=== PATIENT | female | born 1985 ===

== ENCOUNTER 2018-11-09 08:02 | Inpatient (IN) | payer SELFPAY ==
[2018-11-09] MEDS ORDERED: Carboprost Tromethamine 250 MCG/1 ML Amp IM PRN (08:28)
[2018-11-09] MEDS ORDERED: Lidocaine 1% 50 ML MDV INJECT PRN (08:28)
[2018-11-09] MEDS ORDERED: Nalbuphine 10 MG/1 ML Vial IVPUSH PRN (08:28)
[2018-11-09] MEDS ORDERED: Methylergonovine 0.2 MG/1 ML Amp IM PRN (08:28)
[2018-11-09] MEDS ORDERED: Sodium Chloride 0.9% 10 ML SDV IV PRN (08:28)
[2018-11-09] MEDS ORDERED: Tranexamic Acid 1,000 MG in Sodium Chloride 0.9% 100 ML IV PRN (08:28)
[2018-11-09] MEDS ORDERED: Sodium Chloride 0.9% 10 ML Syringe FLUSH PRN (08:28)
[2018-11-09] MEDS ORDERED: Sodium Chloride 0.9% 2.5 ML Syringe FLUSH PRN (08:28)
[2018-11-09] MEDS ORDERED: Water For Irrigation,Sterile 1,000 ML Container IRR PRN (08:28)
[2018-11-09] MEDS ORDERED: Butorphanol 1 MG/ML SDV IVPUSH PRN (08:28)
[2018-11-09] MEDS ORDERED: Misoprostol 200 MCG Tab PO PRN (08:28)
[2018-11-09] MEDS ORDERED: Lactated Ringers 1,000 ML IV SCH (08:30)
[2018-11-09] MEDS ORDERED: Oxytocin/0.9 % Sodium Chloride 30 UNIT/500 ML BAG IV SCH (08:30)
[2018-11-09] MEDS ORDERED: Methylergonovine 0.2 MG/1 ML Amp ONE (08:36)
[2018-11-09] MEDS ORDERED: Lidocaine 1% 50 ML MDV ONE (08:37)
[2018-11-09] MEDS ORDERED: Oxytocin 10 Units/1 ML SDV ONE (08:42)
--- NOTE | 2018-11-09 09:13 | PCM.OPNOTE ---
<Evelyn Duran - Last Filed: 11/09/18 09:06> - General Post-Op/Procedure Note Date of Surgery/Procedure: 11/09/18 Operative Procedure(s): Vaginal delivery Findings: of liveborn female . Apgars 8/9. Weight pending. 3vc. Placenta intact. Pre Op Diagnosis: 32y 40/5 IUP in labor Post-Op Diagnosis: same Primary Surgeon: Rosemary Causey Cotton Grader: Evelyn Duran Role of Cotton Grader: 4th year medical student EBL in mLs: 300 Condition: Good <Rosemary Causey - Last Filed: 11/09/18 09:16> - General Post-Op/Procedure Note Findings: Second degree perineal, left sulcal, and bilateral periurethral lacerations Free Text/Narrative:: Lacerations not repaired per patient request. No pitocin given per patient request. H&P dictation # [id number] Op report dictation # [id number]
--- NOTE | 2018-11-09 09:39 | HP ---
DATE OF : 1985 PRIMARY CARE PHYSICIAN: Unknown PCP HISTORY OF PRESENT ILLNESS: This is a 32-year-old, G1, P0, who presented at 40 weeks and 5 days gestation in labor. The patient has been planning a home . Per patient and family members report, she had been at complete cervical dilation since 3 o'clock this morning and pushing without subsequent delivery of the baby. They arrived to the hospital for further evaluation. She reported some care in [place] with a double cut sawyer. PAST OBSTETRICAL HISTORY: G1, P0. PAST GYNECOLOGICAL HISTORY: Noncontributory. PAST MEDICAL HISTORY: Denies. PAST SURGICAL HISTORY: Denies. FAMILY HISTORY: Noncontributory. SOCIAL HISTORY: Denies tobacco, alcohol, or drug use. ALLERGIES: Denies. MEDICATIONS: None. PHYSICAL EXAMINATION: VITAL SIGNS: Not obtained. GENERAL: No apparent distress. ABDOMEN: Soft, gravid, nontender to palpation. EXTREMITIES: No edema. Nontender to palpation. CERVIX: Sterile vaginal exam complete cervical dilation, +1 station. heart tones 130, moderate variability, positive accelerations, contractions every 2 to 3 minutes. ASSESSMENT AND PLAN: This is a 32-year-old, G1, P0, at 40 weeks and 5 days gestation, per the patient 's stated PRANAY, in labor. Continue pushing; anticipate spontaneous vaginal delivery. HAYLEE / BLAKE /[id number] MTDNader
[2018-11-09] MEDS ORDERED: Witch Hazel Medicated Pads 40/Jar TOP ONE (10:18)
[2018-11-09] MEDS ORDERED: Benzocaine/Menthol 20%-0.5% Spray 78 GM Cannister ONE (10:19)
--- NOTE | 2018-11-09 11:40 | OR ---
SURGEON: Rosemary Causey MD DATE OF PROCEDURE: 11/09/2018 PREOPERATIVE DIAGNOSES: 1. A 32-year-old, G1, P0, at 40-5/7 weeks' gestation by patient stated estimated date of delivery. 2. Labor. POSTOPERATIVE DIAGNOSES: 1. A 32-year-old, G1, P0, at 40-5/7 weeks' gestation by patient stated estimated date of delivery. 2. Labor. PROCEDURE: Spontaneous vaginal delivery. PRIMARY SURGEON: Rosemary Causey MD. INSOLE TAPER: Evelyn Duran, medical student. ESTIMATED BLOOD LOSS: 300 mL. FINDINGS: Live female in cephalic presentation. scores 8 and 9 at 1 and 5 minutes respectively. Weight pending. Second-degree laceration, left sulcal laceration, bilateral periurethral lacerations. DESCRIPTION OF PROCEDURE: The patient progressed to complete cervical dilation. She pushed to a spontaneous vaginal delivery of a live female , scores 8 and 9 at 1 and 5 minutes respectively. Weight pending. The head was delivered followed by the remainder of the body. A nuchal cord x1 was reduced after delivery of the body. The was placed on the maternal abdomen. After approximately 9 minutes, the cord stopped pulsating per father of baby's determination. The cord was clamped and cut. The placenta was delivered via the Arriola-Melendez maneuver. Pitocin was declined by the patient, with counseling that extensive hemorrhage resulting in loss of life, could occur with uterine atony. The perineum was inspected. A second-degree perineal laceration, a left sulcal tear, and bilateral periurethral lacerations were noted. After counseling that extensive hemorrhage can occur with these lacerations, the patient declined repair. Estimated blood loss 300 mL. The patient and infant tolerated the procedure well. [id number] / MODL /[id number] MTDNader
--- NOTE | 2018-11-09 12:54 | PCM.SN ---
- Free Text/Narrative Note: Notified by nursing staff that patient desires discharge after 6 hours . Discussed with patient that this is against my advice, and she will have to sign out against medical advice. Discussed risks of discharge at this time, including infection and hemorrhage, with potential for loss of life if bleeding were severe. The patient and her voiced understanding and desired to leave. They had no questions.
== END 2018-11-09 15:20 | disposition home or self-care (01) | DRG 807 ==
LOC: MW.OBCHECK 08:02 → MW.OB 08:03 → MW.OBCHECK 08:11 → MW.OB 08:12 → OBSVTOIN 08:45
PROVIDERS: ADMIT Obstetrics & Gynecology; ATTEND Obstetrics & Gynecology
PROC: 10E0XZZ Delivery of Products of Conception, External Approach (ICD-10-PCS; principal; 2018-11-09)
DX: O48.0 Post-term pregnancy (principal); Z37.0 Single live birth; Z3A.40 40 weeks gestation of pregnancy; O70.1 Second degree perineal laceration during delivery; O69.81X0 Labor and delivery complicated by cord around neck, without compression, not applicable or unspecified
CPT/HCPCS: 36415; 59025; 59409; 85027; 86850; 86900; 86901; A9270-GY